=== PATIENT | female | born 1945 | race Caucasian/White ===

== ENCOUNTER → 2016-12-31 | Outpatient (CLI) | payer MEDICARE, BC ==
[2016-12-31 12:37] LABS: BASOPHIL % 0.6 %; EOSINOPHIL # 0.1 K/uL (0.0-0.5); HEMATOCRIT 32.6 % (33.0-46.0); HEMOGLOBIN 10.2 g/dL (10.0-15.0); LYMPHOCYTE # 0.8 K/uL (0.8-4.0); LYMPHOCYTE % 21.9 %; MCH 30.2 pg (27.0-34.0); MCHC 31.3 gm/dL (32.0-36.5); MCV 96.4 fl (83.0-98.0); MONOCYTE # 0.3 K/uL (0.0-1.0); MONOCYTE % 7.7 %; MPV 9.4 fl (9.4-12.4); NEUTROPHIL # (ANC) 2.4 K/uL (1.8-7.8); NEUTROPHIL % 67.8 %; NRBC % 0 /100WBC (0-0.00); PLATELET COUNT 144 K/uL (150-450); RBC 3.38 M/uL (3.50-5.50); RDW-CV 15.1 % (11.9-14.6); WBC 3.5 K/uL (4.0-11.0)
[2016-12-31 12:51] LABS: ALBUMIN 4.4 gm/dL (3.5-5.0); ANION GAP 13.6 (10.0-19.0); CALCIUM 8.4 mg/dL (8.5-10.5); POTASSIUM 3.6 mMol/L (3.7-5.1); TOTAL BILIRUBIN 0.7 mg/dL (0.0-1.5); TOTAL PROTEIN 7.5 g/dL (6.0-8.4)
== END | disposition disaster alternative care site (69) ==
LOC: GLAB 12:00 → GRAD 01-10 13:00
PROVIDERS: Surgery
DX: C49.A0 Gastrointestinal stromal tumor, unspecified site (principal); K76.89 Other specified diseases of liver
CPT/HCPCS: C8902

== ENCOUNTER → 2017-02-21 | Outpatient (CLI) | payer MEDICARE, BC | END | disposition disaster alternative care site (69) | LOC: LKCL 16:27 | DX: R22.2 Localized swelling, mass and lump, trunk (principal) ==

== ENCOUNTER → 2017-04-02 | Outpatient (CLI) | payer MEDICARE, BC ==
[2017-04-02 13:05] LABS: CREATININE 0.8 mg/dL (0.5-1.1); ESTIMATED GFR (MDRD EQUATION) > 60
== END | disposition disaster alternative care site (69) ==
LOC: GLAB 12:00 → GRAD 12:11
PROVIDERS: Surgery
DX: D48.1 Neoplasm of uncertain behavior of connective and other soft tissue (principal); K76.9 Liver disease, unspecified
CPT/HCPCS: A9577